=== PATIENT | female | born 1995 ===

== ENCOUNTER 2017-02-06 12:10 | Emergency (ER) | payer BC ==
--- NOTE | 2017-02-06 14:14 | UC ---
Complaint Female HPI - HPI Summary HPI Summary: complaint of vaginal itching and burning that started 2 days ago started having discharge that was thick and white menses started today - mild cramping denies pain with urination, denies increase frequency and urgency denies fever, back pain and abdominal pain no sexually active at this time- doesn't want STD testing - History Of Current Complaint Chief Complaint: UCGU Stated Complaint: PERSONAL Time Seen by Provider: 02/06/17 14:09 Hx Last Menstrual Period: 12/31/16 - Allergies/Home Medications Allergies/Adverse Reactions: Allergies Allergy/AdvReac Type Severity Reaction Status Date / Time No Known Allergies Allergy Verified 02/06/17 12:45 PMH/Surg Hx/FS Hx/Imm Hx Previously Healthy: Yes - Surgical History Surgical History: None - Family History Known Family History: Negative: Cardiac Disease, Hypertension, Diabetes - Social History Occupation: Student Lives: With Family Alcohol Use: None Substance Use Type: None Smoking Status (MU): Never Smoked Tobacco Review of Systems Constitutional: Negative Skin: Negative Eyes: Negative ENT: Negative Respiratory: Negative Cardiovascular: Negative Gastrointestinal: Negative Genitourinary: Other - vagional discharge Motor: Negative Neurovascular: Negative Musculoskeletal: Negative Neurological: Negative Psychological: Negative All Other Systems Reviewed And Are Negative: Yes Physical Exam Triage Information Reviewed: Yes Appearance: No Pain Distress, Well-Nourished Vital Signs: Initial Vital Signs Temp 98.2 F 02/06/17 12:41 Pulse Ox 100 02/06/17 12:41 Vital Signs Reviewed: Yes Eyes: Positive: Conjunctiva Clear ENT: Positive: Pharynx normal, TMs normal Neck: Positive: No Lymphadenopathy Respiratory: Positive: Lungs clear, Normal breath sounds, No respiratory distress Cardiovascular: Positive: RRR, No Murmur, Pulses Normal Abdomen Description: Positive: Nontender, No Organomegaly, Soft. Negative: CVA Tenderness (R), CVA Tenderness (L) Bowel Sounds: Positive: Present Musculoskeletal Exam: Normal Neurological Exam: Normal Psychological Exam: Normal Skin Exam: Normal Skin: Positive: Other - External genitalia with erythema, Vaginal vault is with thick white discharge. Cervix is of normal color without lesion. The os is slightly open - bleeding noted. Uterus is noted to be of normal size and nontender. No cervical motion tenderness is seen. No masses are palpated. The adnexa are without masses or tenderness. Complaint Female Dx - Course Course Of Treatment: exam completed. will treat for candidal infection - Differential Dx/Diagnosis Differential Diagnosis/HQI/PQRI: Sexually Transmitted Disease, Other - vaginitis Provider Diagnoses: candidal vaginitis Discharge - Discharge Plan Condition: Stable Disposition: HOME Prescriptions: Miconazole Nitrate Vaginal [Miconazole 7] 2 % [facility] BEDTIME #7 cre Patient Education Materials: Vulvovaginal Candidiasis (ED) Referrals: No Primary Care Phys,[facility]OPCP [Primary Care Provider] - [facility] [Outside] Additional Instructions: Please start medication as directed Increase fluids and rest Take acetaminophen or ibuprofen for fever or pain Please review your discharge instructions. If your symptoms do not improve please call your primary care provider or return to urgent care.
== END 2017-02-06 14:52 | disposition home or self-care (01) ==
LOC: UCEAST 12:10
DX: B37.3 Candidiasis of vulva and vagina (principal); N89.8 Other specified noninflammatory disorders of vagina; Z32.02 Encounter for pregnancy test, result negative
CPT/HCPCS: 81003; 84702; 87086; 87480; 87491; 87510; 87591; 87661; 99202; G0463

== ENCOUNTER 2017-12-03 17:42 | Emergency (ER) | payer SELFPAY ==
[2017-12-03] MEDS: NS 0.9% 1000 ML* 2,000 ML IV ONE ×2 (18:16→18:17)
[2017-12-03] MEDS ORDERED: Ondansetron INJ* 2 MG/ML VIAL IV ONE (18:39)
--- NOTE | 2017-12-03 18:53 | RAD ---
HISTORY: Altered mental status, headache COMPARISONS: None TECHNIQUE: Multiple contiguous axial CT scans were obtained of the head without intravenous contrast. FINDINGS: HEMORRHAGE/INFARCT: There is no hemorrhage or acute infarct. MASSES/SHIFT: There is no mass or shift. EXTRA-AXIAL SPACES: There are no extra-axial fluid collections. SULCI AND VENTRICLES: The sulci and ventricles are normal in size and position for the patient's stated age. CEREBRUM: There are no focal parenchymal abnormalities. BRAINSTEM: There are no focal parenchymal abnormalities. CEREBELLUM: There are no focal parenchymal abnormalities. VESSELS: The vessels are grossly normal. PARANASAL SINUSES: The paranasal sinuses are clear. ORBITS: The orbits are unremarkable. BONES AND SOFT TISSUE: No bone or soft tissue abnormalities are noted. OTHER: None IMPRESSION: NO ACUTE INTRACRANIAL PATHOLOGY.
--- NOTE | 2017-12-03 18:54 | RAD ---
HISTORY: Headache, nosebleeds COMPARISONS: None TECHNIQUE: Multiple contiguous axial CT scans were obtained of the face without intravenous contrast, with coronal and sagittal multiplanar reformations. FINDINGS: BONES: There is no displaced fracture or dislocation. The orbital rim is intact. The zygomatic arch is intact. The pterygoid plates are intact. ORBITS: The globes are round. The optic nerves are symmetric. The extraocular musculature is normal. There is no post septal or intraconal inflammatory change. There is no retrobulbar hematoma. PARANASAL SINUSES: The paranasal sinuses are clear. The nasal septum is slightly deviated to the left. BRAIN AND SOFT TISSUE: Unremarkable. OTHER: Metallic jewelry is noted along the left naris. IMPRESSION: NO FACIAL FRACTURE. NO ACUTE NONCONTRAST CT PATHOLOGY OF THE VISUALIZED PORTION OF THE FACE
--- NOTE | 2017-12-03 18:55 | RAD ---
HISTORY: Cervical strain COMPARISONS: None TECHNIQUE: Multiple contiguous axial CT scans were obtained of the cervical spine without intravenous contrast, with coronal and sagittal multiplanar reformations. FINDINGS: BRAIN: The visualized brain is unremarkable CENTRAL CANAL: Evaluation of the central canal is limited on CT technique; however, there is no obvious canalicular mass or epidural hemorrhage. ALIGNMENT: There is straightening of the cervical lordosis. VERTEBRAL BODIES: The odontoid process is intact. The atlantoaxial intervals are symmetric. The vertebral bodies are normal in attenuation, without fracture. JOINTS: There is no subluxation or dislocation. MUSCULATURE: Unremarkable INTERVERTEBRAL DISCS: The intervertebral discs are relatively preserved in height. AXIAL IMAGES: C2-C3: There is no osseous neural foraminal narrowing or central canal stenosis. C3-C4: There is no osseous neural foraminal narrowing or central canal stenosis. C4-C5: There is no osseous neural foraminal narrowing or central canal stenosis. C5-C6: There is no osseous neural foraminal narrowing or central canal stenosis. C6-C7: There is no osseous neural foraminal narrowing or central canal stenosis. C7-T1: There is no osseous neural foraminal narrowing or central canal stenosis. SOFT TISSUES: The visualized soft tissues of the neck are unremarkable. The prevertebral fat stripe is preserved. OTHER: None. IMPRESSION: STRAIGHTENING OF THE CERVICAL LORDOSIS.
[2017-12-03] MEDS ORDERED: Acetaminophen TAB* 325 MG PO ONE (18:56)
[2017-12-03 18:58] LABS: ABS Basophils 0 10^3/ul (0-0.2); ABS Eosinophils 0.1 10^3/ul (0-0.6); ABS Lymphocytes 2.3 10^3/ul (1.0-4.8); ABS Monocytes 0.6 10^3/ul (0-0.8); ABS Neutrophils 2.9 10^3/ul (1.5-7.7); ABS Nucleated RBC 0 10^3/ul; Eosinophil % 1.5 % (0-6); Hematocrit 39 % (35-47); Hemoglobin 13.2 g/dl (12.0-16.0); Lymphocyte % 39.5 % (25-47); Mean Corpuscular HGB Conc 34 g/dl (31-36); Mean Corpuscular Hemoglobin 31 pg (27-31); Mean Corpuscular Volume 91 fL (80-97); Mean Platelet Volume 8 um3 (7.4-10.4); Nucleated Red Blood Cells % 0.1; Platelet Count 236 10^3/ul (150-450); Red Blood Count 4.29 10^6/ul (4.0-5.4); Red Cell Distribution Width 13 % (10.5-15); White Blood Count 5.9 10^3/ul (3.5-10.8)
[2017-12-03 19:09] LABS: INR 0.96 (0.77-1.02)
[2017-12-03 19:26] LABS: EGFR Non-African American 76.9 (>60)
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
[2017-12-03 20:23] VITALS: BP 116/83
== END 2017-12-03 20:26 | disposition home or self-care (01) ==
LOC: ED 17:42
DX: R51 Headache (principal)
CPT/HCPCS: 36415; 70450; 70486; 72125; 80053; 80320; 80329; 82140; 82550; 82553; 83605; 83690; 83735; 83880; 84443; 84484; 84702; 85025; 85379; 85610; 85730; 86140; 96374; 99285; A9270-GY; G0480; J2405